=== PATIENT | female | born 1955 | race Caucasian/White ===

== ENCOUNTER 2017-04-07 02:56 | Inpatient (IN) | payer OTHER ==
[~2017-04-07] VITALS: Ht 167.6 cm; Wt 63.5 kg
[2017-04-07] MEDS ORDERED: ONDANSETRON 4 MG/2 ML VIAL IV ONE (03:30)
[2017-04-07] MEDS ORDERED: MORPHINE SULFATE 2 MG/1 ML DISP.SYRIN IV ONE (03:30)
[2017-04-07 03:44] LABS: BASOPHILS % (AUTO) 0.2 % (0.0-2.0); EOSINOPHILS % (AUTO) 0.2 % (0.0-7.0); HEMOGLOBIN 12.3 g/dL (10.9-14.3); LYMPHOCYTES # (AUTO) 0.7 K/uL (20.0-40.0); MEAN CORPUSCULAR HEMOGLOBIN 29.8 uug (24.7-32.8); MEAN CORPUSCULAR HGB CONC 34 g/dL (32.3-35.6); MEAN CORPUSCULAR VOLUME 87.4 fL (75.5-95.3); MONOCYTES # (AUTO) 0.4 K/uL (2.0-10.0); MONOCYTES % (AUTO) 3.7 % (0.0-11.0); NEUTROPHILS # (AUTO) 10.4 K/uL (1.8-8.9); NEUTROPHILS % (AUTO) 89.9 % (38.5-71.5); PLATELET COUNT (AUTO) 203 K/uL (179-408); RED BLOOD CELL COUNT(AUTO) 4.11 MIL/uL (3.63-4.92); WHITE BLOOD COUNT (AUTO) 11.5 K/uL (3.8-11.8)
[2017-04-07] MEDS ORDERED: ONDANSETRON 4 MG/2 ML VIAL ONE (03:48)
[2017-04-07] MEDS ORDERED: MORPHINE SULFATE 2 MG/1 ML DISP.SYRIN ONE (03:49)
[2017-04-07 04:04] LABS: POTASSIUM 3.3 mmol/L (3.5-5.1)
[2017-04-07 04:10] LABS: BILIRUBIN,DIRECT 0.2 mg/dL (0.0-0.2); BILIRUBIN,TOTAL 0.9 mg/dL (0.2-1.0); TOTAL PROTEIN, SERUM 7.3 g/dL (6.4-8.2)
[2017-04-07] MEDS ORDERED: MORPHINE SULFATE 4 MG/1 ML DISP.SYRIN IV ONE (04:15)
[2017-04-07] MEDS ORDERED: MORPHINE SULFATE 4 MG/1 ML DISP.SYRIN ONE (04:26)
--- NOTE | 2017-04-07 05:08 | NUR ---
Call placed to [facility], Dr. Ray will be paged.
[2017-04-07] MEDS ORDERED: HYDR12.5 PO (05:13)
[2017-04-07] MEDS ORDERED: LEVO112T2 PO (05:13)
[2017-04-07] MEDS ORDERED: TRAZ-147 PO (05:13)
[2017-04-07] MEDS ORDERED: ALEN70TA45 PO (05:13)
[2017-04-07] MEDS ORDERED: ESCI20TA PO (05:13)
--- NOTE | 2017-04-07 05:42 | NUR ---
2nd call placed to [facility], Dr. Ray will be paged.
[2017-04-07] MEDS ORDERED: MAGNESIUM HYDROXIDE 30 ML LIQUID UDC PO PRN (06:00)
[2017-04-07] MEDS ORDERED: TRAZODONE 100 MG TABLET PO PRN (06:00)
[2017-04-07] MEDS ORDERED: HYDROCODONE/APAP 5-325MG TABLET PO PRN (06:00)
[2017-04-07] MEDS ORDERED: ENOXAPARIN SODIUM 40 MG/0.4 ML DISP.SYRIN SQ SCH (06:00)
[2017-04-07] MEDS ORDERED: HYDROCODONE/APAP 10-325 MG TABLET PO PRN (06:00)
[2017-04-07] MEDS ORDERED: ACETAMINOPHEN 325 MG TABLET PO PRN (06:00)
[2017-04-07] MEDS ORDERED: ONDANSETRON 4 MG/2 ML VIAL IV PRN (06:00)
[2017-04-07] MEDS ORDERED: Z GUARD REMEDY PASTE 57 GM TUBE TOP PRN (06:00)
--- NOTE | 2017-04-07 06:07 | NUR ---
Call placed to on-call orthopedic, Dr. Daniels, who will be paged.
--- NOTE | 2017-04-07 06:08 | NUR ---
Pt. admitted to [facility], under care of Dr. Ray Belongs List completed
--- NOTE | 2017-04-07 06:20 | NUR ---
PATIENT TRANSFERRED INTO MED-SURG FLOOR FROM ER AT THIS TIME IN STABLE CONDITION, NO S/S OF DISTRESS, VITAL SIGNS STABLE. BELONGINGS CHECKED, VITAL SIGNS TAKEN. SAFETY/COMFORT PROVIDED.
--- NOTE | 2017-04-07 08:00 | NUR ---
PT RECEIVED IN BED AWAKE ,NO C/O PAIN NOTED. IS AT BED SIDE.ASSESSMENT DONE,CALL LIGHT WITH IN REACH.
[2017-04-07] MEDS: MORPHINE SULFATE 2 MG/1 ML DISP.SYRIN IV PRN ×2 (08:08→18:53)
[2017-04-07] MEDS: HYDROCHLOROTHIAZIDE 12.5 MG CAPSULE PO SCH (08:09)
[2017-04-07] MEDS: ESCITALOPRAM OXALATE 10 MG TABLET PO SCH (08:09)
[2017-04-07] MEDS ORDERED: LEVOTHYROXINE SODIUM 112 MCG TABLET PO ONE (08:45)
[2017-04-07] MEDS ORDERED: LEVOTHYROXINE SODIUM 112 MCG TABLET PO SCH ×2 (09:00)
[2017-04-07 11:35] VITALS: BP 113/60
[2017-04-07] MEDS: POTASSIUM CHLORIDE 20 MEQ in IV D5 1/2 NS 1000 ML 1,000 ML IV PRN (11:51)
[2017-04-07] MEDS ORDERED: CEFAZOLIN 1 G in PREMIXED 1 EACH IV PRN (14:30)
[2017-04-07 14:33] LABS: *BILIRUBIN,URIN NEGATIVE (NEGATIVE); *BLOOD, URINE Trace-intact (NEGATIVE); *CLARITY,URINE CLEAR (CLEAR); *COLOR,URINE YELLOW (YELLOW); *KETONES,URINE NEGATIVE (NEGATIVE); *PROTEIN,URINE NEGATIVE (NEGATIVE); *UROBILINOGEN,URINE 0.2 E.U./dl (NORMAL); LEUKOCYTE ESTERASE ,URINE NEGATIVE (NEGATIVE); NITRITE, URINE NEGATIVE (NEGATIVE); PH,URINE 5.5 (5.0-8.0); UGLUCOSE NEGATIVE (NEGATIVE)
[2017-04-07 14:45] LABS: BACTERIA,URINE NONE SEEN /HPF (NONE SEEN); WBC,URINE 0-3 /HPF (0-3)
[2017-04-07 14:46] LABS: SQUAMOUS EPITHELIAL CELL,UR FEW /HPF (NONE SEEN)
[2017-04-07 16:15] VITALS: BP 118/61
[2017-04-07 19:00] VITALS: BP 114/62
--- NOTE | 2017-04-07 19:45 | NUR ---
RECEIVED SHIFT REPORT FROM DAY SHIFT NURSE. PATIENT RESTING COMFORTABLY IN BED. NO S/S OF DISTRESS. STABLE CONDITION. PAIN MANAGEMENT WILL BE PROVIDED. NPO AFTER MIDNIGHT, INCREASE FLUIDS TO 100 CC/HR AFTER MIDNIGHT. ANCEF 1 GRAM WILL BE GIVEN IN OR. BED IN LOCKED/LOW POSITION, BED ALARM ON, CALL LIGHT WITHIN REACH. COMFORT/SAFETY WILL BE PROVIDED.
--- NOTE | 2017-04-07 22:00 | NUR ---
TEMPERATURE 99.5 AT 2000. TYLENOL 650 MG PO GIVEN TO PATIENT. TEMPERATURE RECHECKED: 98.5
[2017-04-08] MEDS: POTASSIUM CHLORIDE 20 MEQ in IV D5 1/2 NS 1000 ML 1,000 ML IV PRN (01:01)
[2017-04-08] MEDS: MORPHINE SULFATE 2 MG/1 ML DISP.SYRIN IV PRN (01:24)
[2017-04-08] MEDS ORDERED: MORPHINE SULFATE 4 MG/1 ML DISP.SYRIN ONE (01:32)
[2017-04-08 04:00] VITALS: BP 138/69
[2017-04-08 06:30] LABS: BASOPHILS % (AUTO) 0.5 % (0.0-2.0); EOSINOPHILS # (AUTO) 0.2 K/uL (0.0-0.7); EOSINOPHILS % (AUTO) 2.4 % (0.0-7.0); HEMATOCRIT 34.7 % (31.2-41.9); HEMOGLOBIN 11.6 g/dL (10.9-14.3); LYMPHOCYTES # (AUTO) 1.4 K/uL (20.0-40.0); LYMPHOCYTES % (AUTO) 17.4 % (20.5-51.5); MEAN CORPUSCULAR HEMOGLOBIN 29.3 uug (24.7-32.8); MEAN CORPUSCULAR HGB CONC 33 g/dL (32.3-35.6); MEAN CORPUSCULAR VOLUME 87.9 fL (75.5-95.3); MONOCYTES # (AUTO) 0.6 K/uL (2.0-10.0); MONOCYTES % (AUTO) 7.3 % (0.0-11.0); NEUTROPHILS # (AUTO) 5.9 K/uL (1.8-8.9); NEUTROPHILS % (AUTO) 72.4 % (38.5-71.5); PLATELET COUNT (AUTO) 194 K/uL (179-408); RED BLOOD CELL COUNT(AUTO) 3.95 MIL/uL (3.63-4.92); WHITE BLOOD COUNT (AUTO) 8.1 K/uL (3.8-11.8)
--- NOTE | 2017-04-08 06:40 | NUR ---
TEMPERATURE SLIGHTLY ELEVATED AT 99.3. COOLING MEASURES INITIATED.
[2017-04-08 07:17] LABS: CREATININE 0.9 mg/dL (0.6-1.3); PHOSPHOROUS 2.7 mg/dL (2.5-4.9); POTASSIUM 3.4 mmol/L (3.5-5.1)
[2017-04-08 07:23] LABS: MAGNESIUM 1.1 mg/dL (1.8-2.4)
[2017-04-08 07:31] LABS: THYROID STIMULATING HORMONE 4.528 mIU/mL (0.358-3.740)
[2017-04-08] MEDS ORDERED: MAGNESIUM SULFATE 3 GM in IV DEXTROSE 5% 50 ML IV ONE (08:00)
[2017-04-08] MEDS: ESCITALOPRAM OXALATE 10 MG TABLET PO SCH (09:00)
[2017-04-08] MEDS ORDERED: LEVOTHYROXINE SODIUM 112 MCG TABLET PO SCH (09:00)
[2017-04-08] MEDS: MORPHINE SULFATE 4 MG/1 ML DISP.SYRIN IV PRN ×2 (09:04→11:33)
[2017-04-08] MEDS: MAGNESIUM SULFATE/D5W 100 ML IV SCH ×3 (09:04→10:23)
[2017-04-08] MEDS: HYDROCHLOROTHIAZIDE 12.5 MG CAPSULE PO SCH (10:27)
[2017-04-08 11:49] VITALS: BP 142/81
[2017-04-08] MEDS ORDERED: Morphine Sulfate Inj IV (12:09)
[2017-04-08] MEDS ORDERED: ONDA4VIA30 IV (12:09)
[2017-04-08] MEDS ORDERED: ACET325T53 PO (12:09)
[2017-04-08] MEDS ORDERED: MAGN400O6 PO (12:09)
[2017-04-08] MEDS ORDERED: HYDR-3326 PO (12:09)
--- NOTE | 2017-04-08 13:00 | NUR ---
PATIENT BEEN TRANSFERRED TO [facility] IN SAFE AND STABLE CONDITION. REPORT WAS GIVEN TO BRADLEY GHOTRA. DISCHARGE INSTRUCTIONS WERE EXPLAINED, AND A COPY WAS GIVEN TO PATIENT. F/C ON PLACE DUE TO HIP FRACTURE. IV WAS REMOVED. MG PIGGY BAGS WERE INFUSED ORDERED. SAFETY AND COMFORT PROVIDED BY STAFF. PATIENT LEFT IN AMBULANCE IN SAFE CONDITION.
== END 2017-04-08 12:40 | disposition short-term general hospital (02) | DRG 536 ==
LOC: ER 02:58 → MED 06:08
PROVIDERS: ATTEND Internal Medicine
DX: S72.002A Fracture of unspecified part of neck of left femur, initial encounter for closed fracture (principal); K91.2 Postsurgical malabsorption, not elsewhere classified; K95.89 Other complications of other bariatric procedure; E87.6 Hypokalemia; I10 Essential (primary) hypertension; D25.9 Leiomyoma of uterus, unspecified; E03.9 Hypothyroidism, unspecified; W01.0XXA Fall on same level from slipping, tripping and stumbling without subsequent striking against object, initial encounter; E83.42 Hypomagnesemia; Y93.K1 Activity, walking an animal; Y92.89 Other specified places as the place of occurrence of the external cause; Y83.6 Removal of other organ (partial) (total) as the cause of abnormal reaction of the patient, or of later complication, without mention of misadventure at the time of the procedure; F32.9 Major depressive disorder, single episode, unspecified; Z79.899 Other long term (current) drug therapy; S60.222A Contusion of left hand, initial encounter; S60.512A Abrasion of left hand, initial encounter
CPT/HCPCS: 36415; 71010; 72170; 73130; 73502; 83735; 84100; 84443; 85025; 85730; 87086; 93005; A4663; J0690; J2270; J2405; J3475; J3480; J3490